=== PATIENT | female | born 1995 | race Two or more races ===

== ENCOUNTER 2016-07-16 06:05 | Emergency (ER) | payer MEDICAID, OTHER ==
[~2016-07-16] VITALS: Ht 162.6 cm; Wt 77.1 kg
[~2016-07-16 06:05] MED LIST: PREN-96 PO
[2016-07-16 08:01] LABS: Basophils # (auto) 0 uL; Basophils % (auto) 0.3 % (0.0-2.0); Eosinophils # (auto) 0 uL; Eosinophils % (auto) 0.2 % (0.0-7.0); Hematocrit 40.3 % (36.0-46.0); Hemoglobin 13.3 g/dL (12.2-16.2); Lymphocytes # (auto) 2.3 uL; Lymphocytes % (auto) 22.9 % (10.0-50.0); Mean Corpuscular Hemoglobin 27.3 pg (28.0-32.0); Mean Corpuscular Volume 82.7 fL (80.0-100.0); Mean Platelet Volume 7.9 fL (7.4-10.4); Monocytes # (auto) 0.4 uL; Monocytes % (auto) 3.9 % (0.0-12.0); Neutrophils # (auto) 7.3 uL; Neutrophils % (auto) 72.7 % (37.0-80.0); Platelet Count (auto) 324 10^3/uL (140-450); Red Cell Distribution Width 15.2 % (11.6-16.0); White Blood Cell 10.1 10^3/uL (4.4-10.8)
[2016-07-16 08:16] LABS: Salicylate 2.2 mg/dL (2.8-20.0)
[2016-07-16 08:17] LABS: Albumin 4.4 g/dL (3.4-5.0); Bilirubin, Total 0.3 mg/dL (0.2-1.0); Calcium 8.8 mg/dL (8.5-10.1); Magnesium 2.5 mg/dL (1.6-2.6); Potassium 3.8 mmol/L (3.5-5.1); Total Protein 8.8 g/dL (6.4-8.2)
[2016-07-16 08:23] LABS: Acetaminophen < 2.0 ug/mL (10-30)
[2016-07-16 11:53] VITALS: BP 113/58
== END 2016-07-16 12:16 | disposition home or self-care (01) ==
LOC: ER 06:05 → EDBD 06:05 → EDUNIT# 06:05 → ER 12:16
DX: F12.10 Cannabis abuse, uncomplicated (principal); S00.93XA Contusion of unspecified part of head, initial encounter; S00.83XA Contusion of other part of head, initial encounter; M62.838 Other muscle spasm; Y08.89XA Assault by other specified means, initial encounter; Y93.89 Activity, other specified; Y99.8 Other external cause status; Y92.89 Other specified places as the place of occurrence of the external cause
CPT/HCPCS: 36415; 70450; 70486; 72040; 80053; 80320; 80329; 83735; 84702; 85025; 99285; G0434